=== PATIENT | male | born 1950 | race Two or more races ===

== ENCOUNTER 2017-03-19 07:17 | Day surgery (SDC) | payer MEDICARE, MEDICAID ==
[2017-03-19] MEDS ORDERED: Lactated Ringers 1,000 ML IV SCH (07:30)
[2017-03-19] MEDS ORDERED: Sodium Chloride 0.9% 10 ML Syringe FLUSH PRN (07:30)
[2017-03-19] MEDS ORDERED: ceFAZolin 1 GM in Sodium Chloride 0.9% 50 ML IV ONE (08:45)
[2017-03-19] MEDS ORDERED: Lactated Ringers 1,000 ML IV ONE (09:20)
[2017-03-19] MEDS ORDERED: Propofol 200 MG/20 ML SDV IV ONE (09:20)
[2017-03-19] MEDS ORDERED: Ondansetron 4 MG/2 ML SDV IVPUSH ONE (09:20)
[2017-03-19] MEDS ORDERED: Ketorolac 30 MG/ML SDV IVPUSH ONE (09:20)
[2017-03-19] MEDS ORDERED: Edrophonium Chloride 150 MG/15 ML MDV IVPUSH ONE (09:20)
[2017-03-19] MEDS ORDERED: Dexamethasone 4 MG/ML 5 ML MDV IVPUSH ONE (09:20)
[2017-03-19] MEDS ORDERED: diphenhydrAMINE 50 MG/ML SDV IV ONE (09:20)
[2017-03-19] MEDS ORDERED: Midazolam 1 MG/ML 2 ML SDV IV ONE (09:20)
[2017-03-19] MEDS ORDERED: Succinylcholine 200 MG/10 ML MDV IV ONE (09:20)
[2017-03-19] MEDS ORDERED: Glycopyrrolate 0.2 MG/ML 5 ML MDV IV ONE (09:20)
[2017-03-19] MEDS ORDERED: Rocuronium 50 MG/5 ML Vial IV ONE (09:20)
[2017-03-19] MEDS ORDERED: fentaNYL 100 MCG/2 ML SDV IV ONE (09:20)
[2017-03-19] MEDS ORDERED: Lidocaine 1% with EPINEPHrine 1:100,000 20 ML MDV INJECT ONE (09:40)
[2017-03-19] MEDS ORDERED: Bupivacaine 0.5% 30 ML SDV INJECT ONE (09:40)
--- NOTE | 2017-03-19 10:10 | PCM.OPNOTE ---
- General Post-Op/Procedure Note Date of Surgery/Procedure: 03/19/17 Operative Procedure(s): incisional hernia repair with mesh Findings: 2 cm defect Pre Op Diagnosis: incisional hernia Post-Op Diagnosis: same Anesthesia Technique: General ET Tube, Local (4 ml 1 % lido with epi/0.5% buvipacaine) Primary Surgeon: Maurilio Fang Anesthesia Provider: Alicia Macias Pathology: sac not sent EBL in mLs: 1 Complications: None Condition: Good Free Text/Narrative:: see dictation
[2017-03-19] MEDS ORDERED: traMADol 50 MG Tab PO PRN (10:11)
--- NOTE | 2017-03-19 11:13 | OR ---
DATE OF OPERATION: 03/19/2017 SURGEON: Maurilio Fang MD PROCEDURE PERFORMED: Incisional hernia repair. PREOPERATIVE DIAGNOSIS: Incisional hernia. POSTOPERATIVE DIAGNOSIS: Incisional hernia. INDICATIONS FOR PROCEDURE: This is a 66-year-old Latin-Thai male, who is status post a laparoscopic cholecystectomy. Down in [place] he has developed these tender nodules superior to his umbilicus in the area of one of the trocar sites, which appears to be consistent with an incisional hernia. He was offered and accepted repair. INTRAOPERATIVE FINDINGS: As follows: A 2 cm defect was identified, this was replace repaired with Ventralex ST hernia patch, diameter 4.3 cm, reference #[id number], lot number [id number], expiration date 2018-09-20, and a total of approximately 4 mL of 1:1 mixture of 1% lidocaine with epinephrine was used for local. DESCRIPTION OF OPERATION: After an excellent endotracheal intubation was administered, the patient was prepped and draped in usual sterile manner. Approximately 5 mL of our local mixture was used to infiltrate our trocar sites. An incision was then made through the previous incision site and the hernia sac was dissected free from the surrounding fascia. The hernia sac was then excised and passed off the field. It was not sent. The Ventralex ST hernia patch was then inserted into the abdominal cavity after assuring there was no fat for this to interfere with our mesh. The patch was then gently pulled up on the abdominal wall, and two tails were then sewn in the each side of the fascia with 0 Prolene and 0 Prolene was then used to close the fascial defect. This area was irrigated. The subcu fat was reapproximated using running 3-0 Vicryl, and 4- 0 Vicryl was used to close the skin. Needle, sponge, and instrument counts were reported as correct. The patient was taken to recovery in good condition. /[id number] /MODL
[2017-03-19 13:00] VITALS: BP 104/71
== END 2017-03-19 12:43 | disposition home or self-care (01) ==
LOC: FB.SDS 07:17
PROVIDERS: ATTEND Surgery
DX: K43.2 Incisional hernia without obstruction or gangrene (principal); K21.9 Gastro-esophageal reflux disease without esophagitis; Z79.899 Other long term (current) drug therapy; Z79.2 Long term (current) use of antibiotics; Z98.890 Other specified postprocedural states; F17.210 Nicotine dependence, cigarettes, uncomplicated
CPT/HCPCS: 49560; 49568; A9270; C1781; J0690; J7050; J7120; 00752-QZ; J0330; J1100; J1200; J1885; J2250; J2405; J2704; J3010

== ENCOUNTER 2019-02-03 07:40 | Day surgery (SDC) | payer MEDICARE, MEDICAID ==
[2019-02-03] MEDS ORDERED: Ondansetron 4 MG/2 ML SDV IVPUSH ONE (07:41)
[2019-02-03] MEDS ORDERED: Midazolam 1 MG/ML 2 ML SDV IV ONE (07:41)
[2019-02-03] MEDS ORDERED: Rocuronium 50 MG/5 ML Vial IV ONE (07:41)
[2019-02-03] MEDS ORDERED: fentaNYL 100 MCG/2 ML SDV IV ONE (07:41)
[2019-02-03] MEDS ORDERED: Propofol 200 MG/20 ML SDV IV ONE (07:41)
[2019-02-03] MEDS ORDERED: Ketorolac 30 MG/ML SDV IVPUSH ONE (07:41)
[2019-02-03] MEDS ORDERED: Lactated Ringers 1,000 ML IV SCH (08:00)
[2019-02-03] MEDS ORDERED: ceFAZolin 1 GM Vial IVPUSH ONE (09:30)
[2019-02-03] MEDS ORDERED: ceFAZolin 1 GM in Sodium Chloride 0.9% 50 ML IV ONE (09:30)
[2019-02-03] MEDS ORDERED: Bupivacaine 0.5% 30 ML SDV ONE (09:53)
[2019-02-03] MEDS ORDERED: Lidocaine 1% with EPINEPHrine 1:100,000 20 ML MDV ONE (09:53)
--- NOTE | 2019-02-03 10:18 | PCM.OPNOTE ---
- General Post-Op/Procedure Note Date of Surgery/Procedure: 02/03/19 Operative Procedure(s): incisional hernia repair Findings: valeria umbilical hernia previous midline hernia repair was intact mesh incorporated Pre Op Diagnosis: recurrent incisional hernia Post-Op Diagnosis: incisional hernia Anesthesia Technique: General LMA, Local (4 ml 1 % lido with epi/0.5% buvipicaine) Primary Surgeon: Maurilio Fang Anesthesia Provider: Alicia Macias Pathology: none Complications: None Condition: Good Free Text/Narrative:: see dictation [id number]
[2019-02-03] MEDS ORDERED: Acetaminophen/HYDROcodone 325-5 MG Tab PO PRN (10:20)
[2019-02-03 13:21] VITALS: BP 117/74
--- NOTE | 2019-02-03 15:46 | OR ---
DATE OF OPERATION: 02/03/2019 SURGEON: Maurilio Fang MD PROCEDURE PERFORMED: Incisional hernia repair. PREOPERATIVE DIAGNOSIS: Recurrent incisional hernia. POSTOPERATIVE DIAGNOSIS: Incisional hernia. INDICATIONS FOR PROCEDURE: This is a 68-year-old white male who had a laparoscopic procedure performed in [place] and underwent a repair of a midline hernia approximately 5 cm above the umbilicus. He presented recently with complaint of a painful bulge that was between the umbilicus near the previous repair site. It appeared that he may have had a recurrent incisional hernia. He was offered and accepted repair. INTRAOPERATIVE FINDINGS: The patient had an incisional hernia at the level of the umbilicus. This is not recurrence. The previous repaired midline incision actually was intact with good mesh incorporation and at least 2 to 3 cm of normal tissue between this repair site and the periumbilical site. It was repaired with a Ventralex ST hernia patch, large [place] was strapped 8 cm in diameter, reference number [id number], lot number [id number] with an expiration date of 10/21/2020. A total of 5 mL of 1:1 mixture of 1% lidocaine with epinephrine 0.5% bupivacaine was used for our incision. DESCRIPTION OF OPERATION: After an excellent LMA anesthetic was administered, the patient was prepped and draped in the usual sterile manner. Our local was used to infiltrate the skin and subcu tissue starting at the previous scar site down circumferentially around the incision. An incision was then made in the midline and encompassed the edge of the umbilicus laterally. Sharp dissection was carried out and the hernia defect was exposed with hernia sac in what appeared to be a 0 prolene remnant in the edge of the hernia sac. This was excised and passed off the field. Careful digital palpation revealed that the previously pared hernia was noted to be superior as noted in my finding section and this is an incisional hernia from the periumbilical port site. Our mesh was placed, tacked into position with the Stat Tacker. The tails were excised and the defect was closed approximating the mesh and approximating the fascia with a running 0 Prolene. The area was irrigated. Subcu fat was approximated with a running subcu 3-0 Vicryl and yony were then used to close the skin. Needle, sponge, and instrument counts were reported as correct. The patient was taken to recovery room in good condition. /[id number] HUGO/CARLOS ENRIQUE
== END 2019-02-03 12:16 | disposition home or self-care (01) ==
LOC: FB.SDS 07:40
PROVIDERS: ATTEND Surgery
DX: K43.2 Incisional hernia without obstruction or gangrene (principal); K21.9 Gastro-esophageal reflux disease without esophagitis; H25.9 Unspecified age-related cataract; G89.29 Other chronic pain; M54.5 Low back pain; M62.08 Separation of muscle (nontraumatic), other site; N40.0 Benign prostatic hyperplasia without lower urinary tract symptoms; Z87.891 Personal history of nicotine dependence; Z86.73 Personal history of transient ischemic attack (TIA), and cerebral infarction without residual deficits; Z79.891 Long term (current) use of opiate analgesic; Z79.82 Long term (current) use of aspirin; Z79.899 Other long term (current) drug therapy
CPT/HCPCS: 00832-QZ; A9270-GY; C1781; J0690; J1885; J2250; J2405; J2704; J3010; J3490; J7120